=== PATIENT | male | born 1995 | race Caucasian/White ===

== ENCOUNTER 2017-04-13 16:26 | Emergency (ER) | payer OTHER ==
[2017-04-13 16:31] VITALS: BP 137/97; PULSE 87; RESP 16; TEMP 98; O2SAT 100
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
== END 2017-04-13 18:41 | disposition home or self-care (01) ==
LOC: H.ER 16:26
DX: S09.90XA Unspecified injury of head, initial encounter (principal); V43.52XA Car driver injured in collision with other type car in traffic accident, initial encounter; Y92.410 Unspecified street and highway as the place of occurrence of the external cause